=== PATIENT | female | born 1960 | race Caucasian/White ===

== ENCOUNTER 2017-01-30 06:20 | Day surgery (SDC) | payer OTHER ==
[~2017-01-30] VITALS: Ht 162.6 cm; Wt 133.0 kg
[~2017-01-30 06:20] MED LIST: PT WILL BRING LIST
[2017-01-30] MEDS ORDERED: FENTANYL PF 250 MCG/5ML ONE (07:18)
[2017-01-30] MEDS ORDERED: MIDAZOLAM 1 MG/ML, 2ML ONE (07:18)
[2017-01-30] MEDS ORDERED: DULO60CA7 PO (07:44)
[2017-01-30] MEDS ORDERED: AMIT50TA PO (07:44)
[2017-01-30] MEDS ORDERED: PANT40TA3 PO (07:44)
[2017-01-30] MEDS ORDERED: CYCL-259 PO (07:44)
[2017-01-30] MEDS ORDERED: TRAM50TA2 PO (07:44)
[2017-01-30] MEDS ORDERED: OXYB10TA6 PO (07:44)
[2017-01-30] MEDS ORDERED: MELO7.5T5 PO (07:44)
[2017-01-30] MEDS ORDERED: LOSA100T2 PO (07:44)
[2017-01-30] MEDS ORDERED: AMLO10TA4 PO (07:44)
[2017-01-30] MEDS ORDERED: TRAZ100T15 PO (07:44)
[2017-01-30] MEDS ORDERED: CARB200T PO (07:44)
[2017-01-30] MEDS ORDERED: ROPI1TAB PO (07:44)
[2017-01-30] MEDS ORDERED: ONDA8TAB9 PO (07:44)
[2017-01-30] MEDS ORDERED: CHOL4PAC2 PO (07:44)
[2017-01-30 07:45] VITALS: BP 170/113
[2017-01-30] MEDS ORDERED: OXYcodone 5 MG/5 ML ORAL.SOL UDC PO PRN (09:30)
[2017-01-30] MEDS ORDERED: hydrALAzine 20 MG/ML, 1ML IV PRN (09:30)
[2017-01-30] MEDS ORDERED: LABETALOL 5MG/ML, 20ML IV PRN (09:30)
[2017-01-30] MEDS ORDERED: HYDROmorphone 1 MG/ML, 1ML IV PRN (09:30)
[2017-01-30] MEDS ORDERED: ONDANSETRON 2MG/ML, 2ML IVPush PRN (09:30)
[2017-01-30] MEDS ORDERED: FENTANYL PF 100 MCG/2ML IV PRN (09:30)
[2017-01-30] MEDS ORDERED: ACETAMINOPHEN 325 MG TABLET PO PRN (09:30)
[2017-01-30] MEDS ORDERED: ALBUTEROL SULFATE 2.5 MG/3 ML NPPB PRN (09:30)
[2017-01-30] MEDS ORDERED: PROPOFOL 10 MG/ML, 20ML ONE (11:15)
[2017-01-30] MEDS ORDERED: ONDANSETRON 2MG/ML, 2ML ONE (11:15)
[2017-01-30] MEDS ORDERED: DEXAMETHASONE 4 MG/ML, 1ML ONE (11:15)
[2017-01-30] MEDS ORDERED: SUCCINYLCHOLINE 20 MG/ML, 10ML ONE (11:15)
== END 2017-01-30 11:15 | disposition home or self-care (01) ==
LOC: OUT 06:20
PROVIDERS: ATTEND Internal Medicine Gastroenterology
DX: K44.9 Diaphragmatic hernia without obstruction or gangrene (principal); K21.9 Gastro-esophageal reflux disease without esophagitis; R13.10 Dysphagia, unspecified; I10 Essential (primary) hypertension; G47.33 Obstructive sleep apnea (adult) (pediatric); F41.9 Anxiety disorder, unspecified; F31.9 Bipolar disorder, unspecified; M79.7 Fibromyalgia; E66.01 Morbid (severe) obesity due to excess calories; Z68.43 Body mass index [BMI] 50.0-59.9, adult; G25.81 Restless legs syndrome; Z96.651 Presence of right artificial knee joint; Z90.49 Acquired absence of other specified parts of digestive tract; Z87.891 Personal history of nicotine dependence; Z80.0 Family history of malignant neoplasm of digestive organs
CPT/HCPCS: 43239; 43248; 88305; J0330; J1100; J2250; J2405; J2704; J3010